=== PATIENT | male | born 1970 | race Caucasian/White ===

== ENCOUNTER 2019-07-05 20:23 | Emergency (ER) | payer OTHER ==
[~2019-07-05] VITALS: Ht 172.7 cm; Wt 80.5 kg
[2019-07-05 20:32] VITALS: Ht 172.7 cm; Wt 80.5 kg
[2019-07-05] MEDS ORDERED: ASPIRIN 325 MG TAB PO STA (21:01)
[2019-07-05] MEDS ORDERED: MULTIVITAMINS 10 ML, THIAMINE 100 MG, FOLIC ACID 1 MG, MAGNESIUM SULFATE 2 GM in SOD CH... IV ONE (21:30)
--- NOTE | 2019-07-05 22:39 | ERD ---
ER Documentation Chief Complaint Chief Complaint C/O LT ARM PAIN AND DIFFICULTY SWALLOWING, C/O LT CHEST PAIN W/ SWALLOWING HPI This is a 49-year-old male with no past medical history the presents to the emergency department complaining of 48hours left arm pain, dysphagia and persistent chest pain which she describes as a sharp shooting pain more worse when he swallows. The patient indicated he did undergo a significant amount of consumption of alcohol this week and with friends at a [employer]. He also indicated that he did utilize cocaine. He denies any associated symptoms of nausea vomiting or diaphoresis. No family history of coronary artery disease. No shortness of breath. No swelling of his lower extremities. ROS All systems reviewed and are negative except as per history of present illness. Allergies Allergies: Coded Allergies: No Known Allergy (Unverified , 07/05/19) PMhx/Soc Medical and Surgical Hx: pt denies Medical Hx, pt denies Surgical Hx Hx Alcohol Use: Yes (ON WEEKENDS ) Hx Substance Use: Yes (COCAINE AND WEED ) Hx Tobacco Use: No Smoking Status: Never smoker Physical Exam Vitals Vital Signs Date Temp Pulse Resp B/P (MAP) Pulse Ox O2 O2 Flow FiO2 Time Delivery Rate 07/05/19 97.7 75 20 107/77 97 20:32 (87) Physical Exam Constitutional:Well-developed. Well-nourished. HEENT:Normocephalic. Atraumatic.Pupils were equal round reactive to light. Moist mucous membranes.No tonsillar exudates. Neck: No nuchal rigidity. No lymphadenopathy. No posterior cervical spine tenderness or step-offs. Respiratory: Not using accessory muscles of respiration.Lungs were clear to auscultation bilaterally. No rhonchi. No rales. No wheezing. Cardiovascular: Regular rate regular rhythm.No murmurs. No rubs were appreciated.S1, S2 normal. Distal pulses are palpable 2+ bilaterally. GI: Abdomen was soft. Nontender. Non Distended. No pulsatile abdominal masses or bruits. No rebound. No guarding. Bowel sounds were present and normal. Muscle skeletal: Full range of motion of both the upper and lower extremities bilaterally.Normal muscle tone.No assymetrical calf tenderness or swelling. Skin: No petechia, no purpura. No lesions on the palms or the soles of the feet. No maculopapular rash. NEURO: Patient was alert, awake, orientated x3.No facial droop. Gait observed and normal with no ataxia.Speech had regular rate and rhythm. No focal neurological deficits. Result Diagram: 07/05/19 2100 07/05/192099 Results 24 hrs Laboratory Tests Test 07/05/19 21:00 White Blood Count 9.1 10^3/ul Red Blood Count 4.59 10^6/ul Hemoglobin 14.2 g/dl Hematocrit 41.9 % Mean Corpuscular Volume 91.3 fl Mean Corpuscular Hemoglobin 30.9 pg Mean Corpuscular Hemoglobin Concent 33.9 g/dl Red Cell Distribution Width 12.8 % Platelet Count 244 10^3/UL Mean Platelet Volume 10.5 fl Immature Granulocytes % 0.300 % Neutrophils % 49.8 % Lymphocytes % 42.4 % Monocytes % 5.5 % Eosinophils % 1.5 % Basophils % 0.5 % Nucleated Red Blood Cells % 0.0 /100WBC Immature Granulocytes # 0.030 10^3/ul Neutrophils # 4.5 10^3/ul Lymphocytes # 3.9 10^3/ul Monocytes # 0.5 10^3/ul Eosinophils # 0.1 10^3/ul Basophils # 0.1 10^3/ul Nucleated Red Blood Cells # 0.0 10^3/ul Prothrombin Time 12.6 Sec Prothrombin Time Ratio 1.0 INR International Normalized Ratio 0.93 Activated Partial Thromboplast Time 25.8 Sec Sodium Level 140 mmol/L Potassium Level 3.8 mmol/L Chloride Level 107 mmol/L Carbon Dioxide Level 25 mmol/L Anion Gap 8 Blood Urea Nitrogen 13 mg/dl Creatinine 0.82 mg/dl Est Glomerular Filtrat Rate mL/min > 60 mL/min Glucose Level 128 mg/dl Calcium Level 9.4 mg/dl Total Bilirubin 0.4 mg/dl Direct Bilirubin 0.00 mg/dl Indirect Bilirubin 0.4 mg/dl Aspartate Amino Transf (AST/SGOT) 22 IU/L Alanine Aminotransferase (ALT/SGPT) 29 IU/L Alkaline Phosphatase 57 IU/L Creatine Kinase 34 IU/L Creatine Kinase Index 0.6 Creatinine Kinase MB (Mass) < 0.22 ng/ml Troponin I < 0.012 ng/ml B-Type Natriuretic Peptide 29 PG/ML Total Protein 7.7 g/dl Albumin 4.3 g/dl Globulin 3.40 g/dl Albumin/Globulin Ratio 1.26 Lipase 40 U/L Ethyl Alcohol Level < 10.0 mg/dl Current Medications Medications Dose Sig/[place] Start Time Status Last (Trade) Ordered Route PRN Stop Time Admin Dose Reason Admin Aspirin 325 mg ONCE STAT 07/05/19 DC 07/05/19 (Aspirin) PO 21:01 07/05/19 21:24 21:03 1,000 ml @ Q2H ONCE 07/05/19 07/05/19 Multivitamins 500 mls/hr IV 21:30 07/05/19 21:35 10 23:29 ml/Thiamine HCl 100 mg/Folic Acid 1 mg/Magnesium Sulfate 2 gm/ Sodium Chloride Procedures/MDM The patient presented to the emergency department complaining of chest pain. My clinical evaluation and workup was to distinguish minor causes of chest pain from acute life threatening cardiopulmonary causes such as myocardial infarction, pulmonary embolism, aortic dissection, esophageal rupture, cardiac tamponade, The patient was placed on a cardiac technician, continuous pulse oximetry and IV access established by nursing staff. The patient was given a banana bag to supplement electrolytes secondary to alcohol consumption. There is no signs of impending delirium tremors. 12 Lead EKG tracing ordered and reviewed by myself showed: Normal sinus rhythm of 71 bpm and no arrhythmia. NM interval normal. QRS duration normal. No ST segment elevation No ST segment depression. No changes consistent with acute ischemia. Chest radiograph showed no cardiomegaly no infiltrates. The patients chest pain was reproduced by palpation and horizontal flexion of the arms. It was my clinical impression that the pain was a result of inflammation of the skin and subcutaneous structures of the chest wall versus myocardial ischemia. I felt the patient had low-risk chest pain and could therefore be safely discharged with close follow-up did not feel this result of myocardial ischemia. I also indicated the patient that this could be induced by the basilar spasm from recent cocaine use. His is at bedside and they felt comfortable being discharged home. The patient was discharged home in fair condition. They were instructed to return to the emergency department at any time if there was any worsening of their condition. The patient stated they would follow up with their PCP in the next 24-48 hours to initiate a suitable medication regimen under the care of their PCP as well as to allow their PCP to monitor any drug reactions. The patient was discharged home with prescriptions after they gave informed consent to the new medication. They were also fully informed by myself on the adverse effects and adverse drug interactions in order to provide adequate safeguards to prevent possible adverse reactions to medications. Departure Diagnosis: Primary Impression: Acute alcoholic gastritis Gastritis bleeding: without bleeding Qualified Codes: K29.20 - Alcoholic gastritis without bleeding Additional Impression: Chest pain Chest pain type: unspecified Qualified Codes: R07.9 - Chest pain, unspecified Condition: Fair Patient Instructions: Chest Pain, Noncardiac DENISE CATHERINE MD Jul 05, 2019 22:39
[2019-07-05 22:40] VITALS: BP 118/86; PULSE 70; RESP 18
== END 2019-07-05 22:41 | disposition home or self-care (01) ==
LOC: E/R 20:23
DX: K29.20 Alcoholic gastritis without bleeding (principal)
CPT/HCPCS: 71045; 80053; 80307; 82550; 82553; 83690; 83880; 84484; 85025; 85610; 85730; 93005; 96374; J3411; J3475; J7030; Z7502; Z7610